=== PATIENT | female | born 1945 | race Caucasian/White ===

== ENCOUNTER → 2017-01-06 | Outpatient (CLI) | payer MEDICARE ==
[~2017-01-06] MED LIST: ADVI200T PO; ALAV10TA PO; EXCETAB66 PO; FISHCAP4 PO; MULT1TAB46 PO; PROB1TAB PO; VITA100017 PO
[2017-01-06 10:04] LABS: AUTOMATED NEUTROPHIL # 1.7 TH/MM3 (1.8-7.7); BASOPHIL % 0.9 % (0.0-2.0); EOSINOPHIL # 0.2 TH/MM3 (0-0.4); HEMATOCRIT 35.4 % (35.0-46.0); HEMO FLAGS DIFF FINAL; LYMPH % 32.5 % (9.0-44.0); LYMPHOCYTE # 1.1 TH/MM3 (1.0-4.8); MEAN CELL VOLUME 91.4 FL (80.0-100.0); MEAN CORPUSCULAR HEMOGLOBIN 30.9 PG (27.0-34.0); MEAN CORPUSCULAR HGB CONC 33.8 % (32.0-36.0); MONO % 11.3 % (0.0-8.0); NEUT % 50.3 % (16.0-70.0); PLATELET COUNT 199 TH/MM3 (150-450); RED BLOOD COUNT 3.87 MIL/MM3 (4.00-5.30); RED CELL DISTRIBUTION WIDTH 13.2 % (11.6-17.2); WHITE BLOOD COUNT 3.4 TH/MM3 (4.0-11.0)
[2017-01-06 10:34] LABS: ALKALINE PHOSPHATASE 46 U/L (45-117); ALT (GPT) 22 U/L (10-53); ANION GAP 10 MEQ/L (5-15); AST (GOT) 15 U/L (15-37); BICARBONATE 25.8 MEQ/L (21.0-32.0); BLOOD UREA NITROGEN 13 MG/DL (7-18); CHLORIDE 102 MEQ/L (98-107); GLOMERULAR FILTRATION RATE 73 ML/MIN (>89); GLUCOSE,FASTING 85 MG/DL (74-99); POTASSIUM 3.7 MEQ/L (3.5-5.1); SODIUM (NA) 138 MEQ/L (136-145); TOTAL BILIRUBIN ADULT 0.5 MG/DL (0.2-1.0)
== END ==
LOC: PLAB 07:34
PROVIDERS: ATTEND Family Medicine
DX: R25.1 Tremor, unspecified (principal); G62.9 Polyneuropathy, unspecified
CPT/HCPCS: 36415; 80053; 84443; 85025

== ENCOUNTER 2017-12-18 09:51 | Day surgery (SDC) | payer MEDICARE ==
[~2017-12-18] VITALS: Ht 157.5 cm; Wt 52.0 kg
[2017-12-18 10:07] VITALS: BP 163/91; PULSE 80; RESP 20; TEMP 98.1; O2SAT 98
[2017-12-18] MEDS ORDERED: SODIUM CHLOR 0.9% 1000 ML INJ 1,000 ML IV SCH (10:15)
[2017-12-18] MEDS ORDERED: ESCI20TA PO (10:49)
[2017-12-18] MEDS ORDERED: RANI150T PO (10:49)
[2017-12-18] MEDS ORDERED: ASPI1TAB93 PO (10:49)
[2017-12-18] MEDS ORDERED: VITA500T83 PO (10:49)
[2017-12-18] MEDS ORDERED: MULTTAB67 PO (10:49)
[2017-12-18] MEDS ORDERED: PROP20TA3 PO (10:49)
[2017-12-18] MEDS ORDERED: IBUP-232 PO (10:49)
[2017-12-18 10:58] VITALS: BP 159/85; PULSE 75; RESP 18; TEMP 98.8; O2SAT 99
[2017-12-18 12:00] VITALS: BP 154/91; PULSE 76; RESP 18; TEMP 98.6; O2SAT 95
[2017-12-18] MEDS ORDERED: LIDOCAINE HCL 1% 20 ML VIAL ONE (12:00)
[2017-12-18 12:28] VITALS: BP 136/78; PULSE 79; RESP 20; O2SAT 98
--- NOTE | 2017-12-18 12:59 | RADRPT ---
EXAM DATE/TIME: 12/18/2017 11:11 [place] COMPARISON: No previous studies available for comparison. EXTERNAL COMPARISON: [facility], PET/CT Tumor, Nov 24 2017 INDICATIONS : Enlarged lymph node right groin. MEDICAL HISTORY : Uterine cancer. SURGICAL HISTORY : Colonoscopy. Plastic surgery. Tonsillectomy. ENCOUNTER: Initial ACUITY: 1 week PAIN SCORE: 0/10 LOCATION: Right groin. ORGAN: Right lymph node groin. SPECIMENS: Two core specimen(s) submitted for pathologic evaluation. DEVICE: 18 gauge Temno needle Post procedure scanning reveals no hematoma or other complication. The possibility does exist that the tissue obtained will be non-diagnostic. If the sample is non-bonilla gnostic a repeat biopsy or surgical biopsy may need to be performed. TECHNIQUE: 1. Ultrasound guidance for needle biopsy. 2. Needle biopsy. The risks, benefits and alternatives to the procedure were explained and verbal and written consent w as obtained. The site was prepped in sterile fashion. Full sterile technique was used, including ca p, mask, sterile gloves and gown and a large sterile sheet. Hand hygiene and 2% chlorhexidine and/or betadine/alcohol prep was utilized per protocol for cutaneous antisepsis. The skin and subcutaneous tissues were infiltrated with local anesthetic solution. Sterile gel and sterile probe cover were u tilized for ultrasound guidance. With the patient on the ultrasound table, images were obtained. A needle was advanced into the identified target and the number of specimens as above obtained and duvall bmitted for pathologic evaluation. The patient tolerated the procedure well and left the ultrasound suite in stable condition. CONCLUSION: Uncomplicated ultrasound guided needle biopsy. Umer Cheema MD on December 18, 2017 at 12:57 Board Certified Radiologist. This report was verified electronically.
[2017-12-19] MEDS ORDERED: LIDOCAINE HCL 1% 20 ML VIAL ONE (14:24)
== END 2017-12-18 12:36 | disposition home or self-care (01) ==
LOC: HRAD 09:51 → HRIP 09:55 → HRAD 12:36
PROVIDERS: ATTEND Obstetrics & Gynecology Gynecologic Oncology
DX: C77.2 Secondary and unspecified malignant neoplasm of intra-abdominal lymph nodes (principal); Z85.42 Personal history of malignant neoplasm of other parts of uterus
CPT/HCPCS: 47000; 76942; 88305; 88341; 88342